=== PATIENT | female | born 1960 | race Two or more races ===

== ENCOUNTER 2020-02-25 10:25 | Emergency (ER) | payer BC ==
[~2020-02-25] VITALS: Ht 157.5 cm; Wt 96.2 kg
--- NOTE | 2020-02-25 10:30 | PHYS DOC ---
Adult General HPI HPI Patient is a 5-year-old female who presents for shortness of breath. Patient reports being asymptomatic 6 days ago when going to work for routine biweekly Covid test. She subsequently tested positive. The next day, on Sunday, patient reported developing URI-like symptoms. States nasal congestion, rhinorrhea, pos tnasal drip and general head congestion. This progressed into her chest she states, reports over the weekend having a dry nonproductive cough and worsen ability to take deep breaths in and out. Patient reports that " yesterday was my worst day" and called her primary care physician who started her on 324 mg aspirin daily with advice to come to the ER for evaluation. Patient reports able to sleep overnight. States today she is actually feeling "a lot better than I have" but ongoing shortness of breath concerned her prompting her to come to our ER. On arrival, patient reporting continued URI-like symptoms. She reports fever T-max 101 with last fever greater than 100.4 being approximately 48 hours ago. No syncope, dizziness, lightheadedness, hemoptysis, chest pain but admits increased shortness of breath and a nonproductive cough. No abdominal pain, nausea vomit or diarrhea, no changes in bladder or bowel function. She has no history of blood clots, is not on any anticoagulation Review of Systems Review of Systems Fourteen body systems of review of systems have been reviewed. See HPI for pertinent positives and negative responses, other steele all other systems are negative, non-pertinent or non-contributory Physical Exam Physical Exam General: Appears well, non toxic, and comfortable Skin: Warm, dry. Normal for ethnicity. HEENT: Atraumatic. PERRLA. Rhinorrhea and congestion. Nasal turbinates boggy b/l. Moist mucous membranes. Uvula midline. Maintaining secretions. No phonation changes. Neck: Trachea midline. Normal ROM. No stridor. Respiratory: Normal WOB. CTAB w/o w/r/r. No tachypnea. Cardiovascular: Regular rate and rhythm. Normal peripheral perfusion. Abdomen: Soft. Non tender. No distension. Back: Normal ROM. Musculoskeletal: No swelling or deformity. Neuro: Alert and oriented x 4. MAEE. Lymph: No cervical LAD. Psych: Normal affect and mood. Current Patient Data Vital Signs Vital Signs Date Time Temp Pulse Resp B/P (MAP) Pulse Ox O2 Delivery O2 Flow Rate FiO2 1/6/21 12:10 98 18 140/85 (103) 92 02/25/20 11:36 97 20 117/68 (84) 92 02/25/20 11:06 114 18 134/83 (100) 93 02/25/20 10:41 98.4 108 17 153/87 (109) 94 Room Air Lab Results Current Medications Medications (Trade) Dose Ordered Sig/Surinder Route PRN Reason Start Time Stop Time Status Last Admin Dose Admin Azithromycin (Zithromax) 500 mg 1X ONCE PO 02/25/20 12:00 02/25/20 12:01 DC 02/25/20 11:59 EKG EKG EKG ordered and interpreted by myself at 1115 hrs. as sinus rhythm at 182 bpm, unremarkable intervals, left axis deviation, no acute ischemic findings, no STEMI Radiology/Procedures Radiology/Procedures XR CHEST 1V CLINICAL INDICATIONS: Shortness of breath, covid positive COMPARISON: None available. Findings: Bilateral bronchitis is seen. Ill-defined bilateral fluffy lung infiltrates are seen. The left lateral costophrenic angle is poorly visualized which may be due to infiltrate or overlying soft tissues. No pneumothorax is seen. The heart size and pulmonary vasculature mediastinum and both kimberly are otherwise unremarkable. IMPRESSION: Bilateral bronchitis. Ill-defined bilateral fluffy lung infiltrates. Electronically signed by: Gilmer Guerra MD (02/25/2020 11:31 AM) [id number] Heart Score HEART Score for Chest Pain: HEART Score for Chest Pain Response (Comments) Value History Slighlty/Non-Suspicious 0 Age >45 - < 65 1 Risk Factors 1 or 2 Risk Factors 1 Total 2 Risk Factors: Risk Factors: DM, Current or recent (<one month) smoker, HTN, HLP, family history of CAD, obesity. Risk Scores: Risk Factors: DM, Current or recent (<one month) smoker, HTN, HLP, family history of CAD, obesity. Course & Med Decision Making Course & Med Decision Making Discussed with the patient all findings and diagnostic testing. I discussed most likely diagnosis of known COVID-19 infection. Whole purpose of patient coming to ER was to rule out pneumonia. No obvious lobar pneumonia but joint decision was made to start azithromycin treatment. Patient is a diabetic, we discussed utility of dexamethasone for known COVID-19 positive individuals but given patient's diabetic status and fact that she is in no respiratory distress with good lung sounds and no wheezes, joint decision was to defer this. Patient's oxygen saturations lower than normal but never required supplemental oxygen nor desaturated with ambulation. Patient has good access to primary care physician, I advised her to keep providing supportive care to her self, checking her temperature and pulse oximetry daily and updating her primary care office on her symptoms etc. I disclosed to patient she might be early in the disease course and I could not exclude worsening of her current condition or development of ot her abnormalities associated with COVID-19 such as blood clots etc. As such, strict return precautions were also discussed at length with good understanding by patient. Patient voiced understanding and agreement with the plan. Patient knows to come back for repeat evaluation if concerning signs or symptoms present prior to outpatient follow-up. Hemodynamically stable, ambulatory and well- appearing at time of disposition. Dragon Disclaimer Dragon Disclaimer This electronic medical record was generated, in whole or in part, using a voice recognition dictation system. Departure Departure: Impression: Primary Impression: COVID-19 Disposition: DC HOME SELF CARE/HOMELESS Condition: STABLE Patient Instructions: Azithromycin tablets Additional Instructions: You were seen for sequelae of known COVID-19 infection. Your physical exam was reassuring. Your chest x-ray did not show any pneumonia but there were findings of bilateral bronchitis. This finding was discussed at length, joint decision was made to treat you with azithromycin to accompany previous remedies prescribed by your primary care physician. In the meantime you need to continue to quarantine yourself at home away from all other individuals, especially those who are elderly or have any other chronic health issues or an immunocompromised status. You should return to the ED if you develop worsening cough, shortness of breath, chest pain, or any other new or concerning symptoms. Alternate Tylenol and ibuprofen as needed for body aches and pain.You should make sure to drink plenty of fluids and get plenty of rest. Please ensure you notify your primary care physician of your visit today and discuss daily pulse oximetry saturations as discussed at length today. It was a pleasure to take care of you and I wish you a speedy recovery Scripts Azithromycin (AZITHROMYCIN TABLET) 250 Mg Tablet 250 MG PO DAILY for ANTI-BIOTIC for 4 Days, #4 TAB 0 Refills Prov: KRISTIN DE LA VEGA DO 02/25/20 KRISTIN DE LA VEGA DO Feb 25, 2020 10:30
--- NOTE | 2020-02-25 11:34 | RAD ---
XR CHEST 1V CLINICAL INDICATIONS: Shortness of breath, covid positive COMPARISON: None available. Findings: Bilateral bronchitis is seen. Ill-defined bilateral fluffy lung infiltrates are seen. The l eft lateral costophrenic angle is poorly visualized which may be due to infiltrate or overlying soft tissues. No pneumothorax is seen. The heart size and pulmonary vasculature mediastinum and both kimberly are otherwise unremarkable. IMPRESSION: Bilateral bronchitis. Ill-defined bilateral fluffy lung infiltrates. Electronically signed by: Gilmer Guerra MD (02/25/2020 11:31 AM) [id number]
[2020-02-25] MEDS ORDERED: AZIT250T6 PO (11:55)
[2020-02-25] MEDS ORDERED: AZITHROMYCIN 250 MG TABLET. PO ONE (12:00)
[2020-02-25 12:10] VITALS: BP 140/85
--- NOTE | 2020-02-25 15:01 | EKG ---
[address] [address] Test Date: 2020-02-25 Test Time: 11:06:46 Pat Name: LIDIA MERRITT Department: Room: Gender: F Collections Officer: : [id number] Requested By: KRISTIN DE LA VGEA Order Number: [id number] Reading MD: Measurements Intervals [place] Rate: 102 P: 34 MO: 138 QRS: -24 QRSD: 90 T: 42 QT: 332 QTc: 437 Interpretive Statements SINUS TACHYCARDIA LEFTWARD AXIS OTHERWISE NORMAL ECG RI6.02 No previous ECG available for comparison
== END 2020-02-25 12:10 | disposition home or self-care (01) ==
LOC: ER 10:25
DX: U07.1 COVID-19 (principal)
CPT/HCPCS: 71045; 93005; 99281; 99283